=== PATIENT | female | born 1990 | race Caucasian/White ===

== ENCOUNTER 2019-04-07 08:07 | Inpatient (IN) | payer OTHER ==
[2019-04-07 09:37] LABS: ADD MAN DIFF? NO
[2019-04-07 09:42] LABS: BASOPHILS % 0.3 % (0.0-2.0); EOSINOPHILS # 0.1 10^3/ul (0.0-0.5); HEMATOCRIT 36.1 % (37.0-47.0); HEMOGLOBIN 12.1 g/dl (12.0-16.0); LYMPHOCYTES # 1.1 10^3/ul (0.8-2.9); LYMPHOCYTES % 12.7 % (15.0-51.0); MEAN CORPUSCULAR HEMOGLOBIN 30.5 pg (29.0-33.0); MEAN CORPUSCULAR HGB CONC 33.5 g/dl (32.0-37.0); MEAN CORPUSCULAR VOLUME 90.9 fl (82.0-101.0); MEAN PLATELET VOLUME 10.1 fl (7.4-10.4); MONOCYTE # 0.7 10^3/ul (0.3-0.9); MONOCYTES % 7.6 % (0.0-11.0); NEUTROPHILS % 78.1 % (39.0-77.0); PLATELET COUNT 225 10^3/UL (140-415); RED BLOOD COUNT 3.97 10^6/ul (4.20-5.40); RED CELL DISTRIBUTION WIDTH 14.1 % (11.5-14.5)
[2019-04-07 09:42] LABS: WHITE BLOOD COUNT 8.9 10^3/ul (4.8-10.8)
[2019-04-07 09:44] LABS: INR 0.94; PROTIME 12.7 Sec (11.9-14.9)
[2019-04-07] MEDS: MISOPROSTOL 50 MCG CAPSULE PO ×3 (09:51→19:13)
[2019-04-07] MEDS: LACTATED RINGER'S 1,000 ML IV ×3 (09:52→17:57)
[2019-04-07] MEDS ORDERED: LIDOCAINE 1% (MPF) 30 ML INJ INJ (10:00)
[2019-04-07] MEDS ORDERED: OXYTOCIN 30 UNITS/LR 500 ML IV ×2 (10:00)
[2019-04-07] MEDS ORDERED: BUTORPHANOL 2 MG INJ IV (10:00)
[2019-04-07] MEDS ORDERED: METHYLERGONOVINE 0.2 MG INJ IM (10:00)
[2019-04-07] MEDS ORDERED: MISOPROSTOL 200 MCG TAB PR (10:00)
[2019-04-07] MEDS ORDERED: CARBOPROST 250 MCG INJ IM (10:00)
[2019-04-07] MEDS ORDERED: MISOPROSTOL 50 MCG CAPSULE PO (15:00)
[2019-04-07 16:59] LABS: RAPID PLASMA REAGIN NONREACTIVE (NR)
[2019-04-08] MEDS: MISOPROSTOL 50 MCG CAPSULE PO ×2 (01:23→07:37)
[2019-04-08] MEDS: LACTATED RINGER'S 1,000 ML IV ×3 (02:21→17:56)
[2019-04-08] MEDS ORDERED: FENTAnyl 2MCG/ML-ROPIV 0.2% 100 ML (17:36)
[2019-04-08] MEDS ORDERED: DIPHENHYDRAMINE 50 MG INJ IV (18:00)
[2019-04-08] MEDS ORDERED: NALOXONE (0.4 MG/ML) INJ IV (18:00)
[2019-04-08] MEDS ORDERED: ONDANSETRON 4 MG INJ IV (18:00)
[2019-04-08] MEDS: FENTAnyl 2MCG/ML-ROPIV 0.2% 100 ML BAG EPI (21:10)
[2019-04-09] MEDS: OXYTOCIN 30 UNITS/LR 500 ML IV ×3 (01:37→18:58)
[2019-04-09] MEDS: LACTATED RINGER'S 1,000 ML IV ×2 (04:14→06:37)
[2019-04-09] MEDS: FENTAnyl 2MCG/ML-ROPIV 0.2% 100 ML BAG EPI ×2 (04:56→12:25)
[2019-04-09] MEDS ORDERED: CITRIC ACID/NA CITRATE 30 ML CUP PO ×3 (14:00→14:30)
[2019-04-09] MEDS ORDERED: CITRIC ACID/NA CITRATE 30 ML CUP (14:24)
[2019-04-09] MEDS: ONDANSETRON 4 MG INJ IV ×2 (14:28→14:30)
[2019-04-09] MEDS ORDERED: AZITHROMYCIN 500MG/NS (PMX) 250 ML IV (14:30)
[2019-04-09] MEDS: GENTAMICIN 120 MG/NS (PMX) 100 ML IVPB (14:30)
[2019-04-09] MEDS ORDERED: CLINDAMYCIN 900 MG/D5W (PMX) 50 ML IVPB (14:30)
[2019-04-09] MEDS ORDERED: GENTAMICIN 120 MG/NS (PMX) 100 ML IVPB (14:31)
[2019-04-09] MEDS: CITRIC ACID/NA CITRATE 30 ML CUP PO (14:40)
[2019-04-09] MEDS ORDERED: OXYTOCIN 10 UNIT INJ (14:57)
[2019-04-09] MEDS ORDERED: METOCLOPRAMIDE 10 MG INJ (15:16)
[2019-04-09] MEDS ORDERED: DEXAMETHASONE 4 MG/ML 1 ML INJ (15:16)
[2019-04-09] MEDS ORDERED: KETOROLAC 30 MG INJ (15:16)
[2019-04-09] MEDS ORDERED: morphine SULFATE/PF (10 MG/10 ML) INJ (15:18)
[2019-04-09] MEDS ORDERED: ROPIVACAINE 0.5 % 30 ML VIAL (15:18)
[2019-04-09] MEDS ORDERED: PHENYLephrine (100 MCG/ML) 10ML SYG (15:22)
[2019-04-09] MEDS ORDERED: EPHEDrine 25 MG/5 ML SYG (15:22)
[2019-04-09] MEDS ORDERED: ACETAMINOPHEN 500 MG TAB PO (15:30)
[2019-04-09] MEDS ORDERED: NALBUPHINE HCL (10 MG/1 ML) INJ IV (15:30)
[2019-04-09] MEDS ORDERED: morphine 2 MG INJ IV ×2 (15:30)
[2019-04-09] MEDS ORDERED: NALOXONE (0.4 MG/ML) INJ IV (15:30)
[2019-04-09] MEDS ORDERED: DIPHENHYDRAMINE 50 MG INJ IV (15:30)
[2019-04-09] MEDS ORDERED: ONDANSETRON 4 MG INJ IV (15:30)
[2019-04-09] MEDS ORDERED: HYDROmorphONE 0.5 MG/0.5 ML SYG IV ×2 (15:30)
[2019-04-09] MEDS: DEXTROSE 5%-LR 1,000 ML IV (18:58)
[2019-04-09] MEDS ORDERED: CARBOPROST 250 MCG INJ IM (19:00)
[2019-04-09] MEDS ORDERED: MAGNESIUM HYDROXIDE 30ML CUP PO (19:00)
[2019-04-09] MEDS ORDERED: METHYLERGONOVINE 0.2 MG TAB PO (19:00)
[2019-04-09] MEDS ORDERED: MISOPROSTOL 200 MCG TAB PR (19:00)
[2019-04-09] MEDS ORDERED: OXYTOCIN 30 UNITS/LR 500 ML IV (19:00)
[2019-04-09] MEDS ORDERED: METHYLERGONOVINE 0.2 MG INJ IM (19:00)
[2019-04-09] MEDS ORDERED: SENNA/DOCUSATE NA (8.6MG/50MG) TAB PO (21:00)
[2019-04-09] MEDS ORDERED: IBUPROFEN 800 MG TAB PO (22:00)
[2019-04-10] MEDS: DEXTROSE 5%-LR 1,000 ML IV ×3 (02:58→18:58)
[2019-04-10] MEDS: LACTATED RINGER'S 1,000 ML IV ×2 (03:59→12:22)
[2019-04-10 05:11] LABS: ADD MAN DIFF? NO
[2019-04-10 05:12] LABS: BASOPHILS % 0.2 % (0.0-2.0); EOSINOPHILS % 0.1 % (0.0-7.0); HEMATOCRIT 33.4 % (37.0-47.0); LYMPHOCYTES # 1.1 10^3/ul (0.8-2.9); MEAN CORPUSCULAR HEMOGLOBIN 30.3 pg (29.0-33.0); MEAN CORPUSCULAR HGB CONC 32.9 g/dl (32.0-37.0); MEAN PLATELET VOLUME 9.7 fl (7.4-10.4); MONOCYTE # 1.1 10^3/ul (0.3-0.9); MONOCYTES % 6.6 % (0.0-11.0); NEUTROPHIL # 13.9 10^3/ul (1.6-7.5); NEUTROPHILS % 85.8 % (39.0-77.0); PLATELET COUNT 176 10^3/UL (140-415); RED BLOOD COUNT 3.63 10^6/ul (4.20-5.40); RED CELL DISTRIBUTION WIDTH 14.3 % (11.5-14.5)
[2019-04-10 05:12] LABS: WHITE BLOOD COUNT 16.2 10^3/ul (4.8-10.8)
[2019-04-10] MEDS: LANOLIN HPA 1 PKT TOP (09:55)
[2019-04-10] MEDS: SENNA/DOCUSATE NA (8.6MG/50MG) TAB PO ×2 (09:55→21:11)
[2019-04-10] MEDS ORDERED: HYDROCODONE/APAP (5/325) TAB PO (11:00)
[2019-04-10] MEDS ORDERED: DIPHTH/TET/ACEL PERTUSS (ADULT) 0.5 ML VIAL IM* (11:00)
[2019-04-10] MEDS: KETOROLAC 30 MG INJ IV (13:28)
[2019-04-10] MEDS ORDERED: HYDROCODONE/APAP (5/325) TAB GTB (14:00)
[2019-04-10] MEDS ORDERED: IBUPROFEN 800 MG TAB PO (14:00)
[2019-04-10] MEDS: IBUPROFEN 800 MG TAB PO (22:31)
[2019-04-11] MEDS: HYDROCODONE/APAP (5/325) TAB PO (02:57)
[2019-04-11] MEDS: DEXTROSE 5%-LR 1,000 ML IV ×3 (02:58→18:58)
[2019-04-11] MEDS: IBUPROFEN 800 MG TAB PO ×4 (06:00→21:33)
[2019-04-11] MEDS: SENNA/DOCUSATE NA (8.6MG/50MG) TAB PO ×2 (09:57→21:33)
[2019-04-12] MEDS: DEXTROSE 5%-LR 1,000 ML IV (02:58)
[2019-04-12] MEDS: IBUPROFEN 800 MG TAB PO ×2 (05:58→14:53)
[2019-04-12] MEDS: SENNA/DOCUSATE NA (8.6MG/50MG) TAB PO (08:29)
[2019-04-12] MEDS: HYDROCODONE/APAP (5/325) TAB PO (08:33)
[2019-04-12] MEDS: MEASLES,MUMPS,RUBELLA VACCINE INJ SC* (08:33)
[2019-04-12] MEDS ORDERED: DIPHTH/TET/ACEL PERTUSS (ADULT) 0.5 ML VIAL IM* (09:00)
[2019-04-12] MEDS: DIPHTH/TET/ACEL PERTUSS (ADULT) 0.5 ML VIAL IM* (14:54)
== END 2019-04-12 15:28 | disposition home or self-care (01) | DRG 788 ==
LOC: OBT 08:07 → PP1 04-11 12:12 → L-D 08:07 → OBT 08:24 → L-D 04-09 15:54 → MS1 04-09 18:39
PROVIDERS: Obstetrics & Gynecology
PROC: 10D00Z1 Extraction of Products of Conception, Low, Open Approach (ICD-10-PCS; principal; 2019-04-09)
PROC: 3E033VJ Introduction of Other Hormone into Peripheral Vein, Percutaneous Approach (ICD-10-PCS; 2019-04-09)
DX: O48.0 Post-term pregnancy (principal); O32.4XX0 Maternal care for high head at term, not applicable or unspecified; Z3A.41 41 weeks gestation of pregnancy; Z37.0 Single live birth
CPT/HCPCS: 62322; 85025; 85610; 85730; 86592; 86850; 86900; 86901; 90715; 99464